=== PATIENT | female | born 1975 | race Caucasian/White ===

== ENCOUNTER 2016-05-21 04:19 | Emergency (ER) | payer BC ==
[2016-05-21 04:29] VITALS: TEMP 97.7; BMI 26.9
[2016-05-21] MEDS ORDERED: MORPHINE 4 MG/ML INJECTION IV ONE (04:45)
[2016-05-21] MEDS ORDERED: NS 1,000 ML IV ONE (04:45)
[2016-05-21] MEDS ORDERED: ONDANSETRON HCL 4 MG/2 ML VIAL IV STA (04:45)
[2016-05-21 04:59] LABS: AUTOMATED BASOPHIL 0.6 % (0-2); AUTOMATED EOSINOPHIL 1.7 % (0-5); AUTOMATED LYMPH 16.6 % (17-44); AUTOMATED MONOCYTE 7.9 % (3-10); AUTOMATED NEUTROPHIL 73.2 % (45-76); MPV 8.6 fL (7.4-10.4)
[2016-05-21 05:08] LABS: BLOOD UREA NITROGEN 12 MG/DL (7-17); CALCIUM 9.4 MG/DL (8.4-10.2); CALCULATED OSMOLALITY 274 MOs/Kg (270-290); CHLORIDE 103 mEq/L (98-107); GLUCOSE 85 MG/DL (70-99); SODIUM LEVEL 143 mEq/L (137-146); TOTAL PROTEIN 7.8 G/DL (6.3-8.2)
[2016-05-21 05:10] LABS: PARTIAL THROMB. TIME 25.3 SEC (22-35); PT-INR 1.1
[2016-05-21] MEDS ORDERED: PANTOPRAZOLE 40 MG TAB PO STA (05:42)
--- NOTE | 2016-05-21 05:55 | EDPRACDOC ---
- General Information Chief Complaint: Abdominal Pain Stated Complaint: ABD PAIN Time Seen by Provider: 05/21/16 04:40 Information Source: Patient Mode Of Arrival: Car Home Medications: Home Medications Meclizine HCl [Antivert] 25 mg PO BID #20 tab 05/02/14 Ondansetron [Zofran Odt] 4 mg PO Q6H #20 tab.rapdis 05/02/14 Oxycodone Immediate Release [Oxy-Ir] 5 mg PO Q6H PRN #14 tab 05/02/14 Ondansetron HCl [Zofran] 4 mg PO Q6H PRN #15 tab 05/21/16 Pantoprazole Sodium [Protonix] 1 tab PO DAILY #14 tab 05/21/16 Allergies/Adverse Reactions: Allergies Allergy/AdvReac Type Severity Reaction Status Date / Time azithromycin Allergy Severe Hives* Verified 05/21/16 04:29 [From Zithromax Z-Nicho] Penicillins Allergy Severe Hives* Verified 05/21/16 04:29 - History of Present Illness Onset: 1 hour STRAPPER HPI: PT PRESENTS WITH EPIGASTRIC ABDOMINAL PAIN THAT BEGAN AN HOUR PRIOR TO ARRIVAL. Pain Location: Reports: Epigastric Pain Context: Reports: Spontaneous Pain Severity: Moderate Pain Quality: Reports: Burning Pain Radiation: Reports: Chest Last Menstrual Period: 2 weeks : No Female Associated Signs & Symptoms: Reports: Nausea. Denies: Vomiting, Fever Oral Intake: Normal Urinary Output: Normal ED Past Medical History - History Reviewed Yes Nurses notes reviewed and agree except as marked - Patient Medical History Psychological History: Denies: Depression Additional Past Medical History: PCOS - Social Medical History Smoking Status: Never smoker Lives With: Family Lives In: Home EDM Review of Systems - Review of Systems ROS Negative Except as Marked: Yes All systems reviewed and were negative except as marked Gastrointestinal: Nausea, Pain (EPIGASTRIC) - Physical Exam Constitutional: Alert Oriented to: Time, Person, Place Last recorded Vital Signs: Last Vital Signs Temp 97.7 F 05/21/16 04:25 Pulse 94 05/21/16 05:48 Resp 20 05/21/16 05:48 BP 126/82 05/21/16 05:48 Pulse Ox 96 05/21/16 05:48 Oxygen Pulse Oxygen Saturation 96 O2 Device Room Air Oxygen Flow Rate Fraction of Inspired Oxygen ( FIO2) - HEENT Head: negative: Deformity, Laceration Eye Exam: negative: Conjunctival Injection, Pale Conjunctiva Oropharynx: negative: Membranes Dry Nose: negative: Congestion, Discharge Neck: negative: Limited ROM - Respiratory/Cardiovascular Respiratory: Normal - CTA. negative: Accessory Muscle Use, Diminished, Tachypnea Cardiovascular: negative: Bradycardia, Tachycardia, Irregular - GI Auscultation: Normal Palpation: Normal Tenderness: Mild, Epigastric. negative: Guarding, Rebound, Rigidity - Musculoskeletal Extremities: Radial Pulse (PALPABLE) - Integumentary Skin: Warm, Dry. negative: Rash - Neurologic Memory Impaired: Normal Motor Function: Normal Mood Description: Anxious, Appropriate Thought: Coherent Perception: Normal - Results 05/21/16 04:40 05/21/16 04:40 WBC 10.9 xk/uL (3.8-10.8) H 05/21/16 04:40 RBC 5.27 xM/uL (4.20-5.40) 05/21/16 04:40 Hgb 15.7 g/dL (12.0-16.0) 05/21/16 04:40 Hct 47.0 % (36-47) 05/21/16 04:40 MCV 89 fL (81-99) 05/21/16 04:40 MCH 29.8 pg (27-32) 05/21/16 04:40 MCHC 33.4 g/dl (33-36) 05/21/16 04:40 RDW 12.8 % (11.5-14.5) 05/21/16 04:40 Plt Count 239 xk/uL (130-400) 05/21/16 04:40 MPV 8.6 fL (7.4-10.4) 05/21/16 04:40 Neut % (Auto) 73.2 % (45-76) 05/21/16 04:40 Lymph % (Auto) 16.6 % (17-44) L 05/21/16 04:40 Towns % (Auto) 7.9 % (3-10) 05/21/16 04:40 Eos % (Auto) 1.7 % (0-5) 05/21/16 04:40 Baso % (Auto) 0.6 % (0-2) 05/21/16 04:40 Absolute Neuts (auto) 7.96 xk/uL (1.7-8.2) 05/21/16 04:40 Absolute Lymphs (auto) 1.74 xk/uL (0.65-4.75) 05/21/16 04:40 PT 10.8 SEC (9.2-11.2) 05/21/16 04:40 INR 1.1 05/21/16 04:40 APTT 25.3 SEC (22-35) 05/21/16 04:40 Sodium 143 mEq/L (137-146) 05/21/16 04:40 Potassium 4.0 mEq/L (3.5-5.1) 05/21/16 04:40 Chloride 103 mEq/L (98-107) 05/21/16 04:40 Carbon Dioxide 28 mMOL/L (22-33) 05/21/16 04:40 Anion Gap 16 mEq/L (8-16) 05/21/16 04:40 BUN 12 MG/DL (7-17) 05/21/16 04:40 Creatinine 0.80 MG/DL (0.52-1.04) 05/21/16 04:40 Estimated GFR (MDRD) > 60 mL/min (>=60) 05/21/16 04:40 Glucose 85 MG/DL (70-99) 05/21/16 04:40 Calculated Osmolality 274 MOs/Kg (270-290) 05/21/16 04:40 Calcium 9.4 MG/DL (8.4-10.2) 05/21/16 04:40 Total Bilirubin 0.6 MG/DL (0.2-1.3) 05/21/16 04:40 AST 34 IU/L (14-36) 05/21/16 04:40 ALT 70 IU/L (9-52) H 05/21/16 04:40 Alkaline Phosphatase 81 IU/L (38-126) 05/21/16 04:40 Troponin I < 0.01 ng/mL (<.04) 05/21/16 04:40 Total Protein 7.8 G/DL (6.3-8.2) 05/21/16 04:40 Albumin 4.5 G/DL (3.5-5.0) 05/21/16 04:40 Lipase 122 U/L (23-300) 05/21/16 04:40 Lab Results 05/21/16 05/21/16 05/21/16 04:40 04:40 04:40 WBC 10.9 H RBC 5.27 Hgb 15.7 Hct 47.0 MCV 89 MCH 29.8 MCHC 33.4 RDW 12.8 Plt Count 239 MPV 8.6 Neut % (Auto) 73.2 Lymph % (Auto) 16.6 L Towns % (Auto) 7.9 Eos % (Auto) 1.7 Baso % (Auto) 0.6 Absolute Neuts (auto) 7.96 Absolute Lymphs (auto) 1.74 PT 10.8 INR 1.1 APTT 25.3 Sodium 143 Potassium 4.0 Chloride 103 Carbon Dioxide 28 Anion Gap 16 BUN 12 Creatinine 0.80 Estimated GFR (MDRD) > 60 Glucose 85 Calculated Osmolality 274 Calcium 9.4 Total Bilirubin 0.6 AST 34 ALT 70 H Alkaline Phosphatase 81 Troponin I < 0.01 Total Protein 7.8 Albumin 4.5 Lipase 122 - EKG EKG #1 EKG Time: 04:56 -: Yes EKG interpreted by me Rate: bpm: 83 Rhythm: NSR Block: None ST: Normal Decision Time to Discharge: 05:55 - Departure Yes I personally saw and evaluated the patient. Disposition: Home Condition: Stable Final Diagnosis: Abdominal pain Instructions: Acute Abdominal Pain (ED), Peptic Ulcer (ED) Education/Counseling Given To: Patient, Family Member Education/Counseling Given Regarding: Diagnosis, Treatment, Prognosis, Follow Up Referrals: Lucinda Shen MD [Primary Care Provider] - Call for Appointment Prescriptions: Ondansetron HCl [Zofran] 4 mg PO Q6H PRN #15 tab PRN Reason: Nausea/Vomiting Pantoprazole Sodium [Protonix] 1 tab PO DAILY #14 tab
[2016-05-21 06:31] VITALS: BP 109/70; PULSE 82
== END 2016-05-21 06:30 | disposition home or self-care (01) ==
LOC: ED 04:19
DX: R10.9 Unspecified abdominal pain (principal)
CPT/HCPCS: 36415; 80053; 83690; 84484; 85025; 85610; 85730; 93005; 96361; 96374; 96375; 99283; J2270; J2405; J3490